=== PATIENT | female | born 1995 | race Caucasian/White ===

== ENCOUNTER 2019-03-25 15:30 | Emergency (ER) | payer OTHER ==
[2019-03-25 15:56] VITALS: BP 122/60; PULSE 78; TEMP 97.8; BMI 18.6
--- NOTE | 2019-03-25 15:56 | PDOC ---
Rapid Medical Evaluation Chief Complaint: Vaginal Sxs Time Seen by Provider: 03/25/19 15:53 Medical Evaluation: Allergies Allergy/AdvReac Type Severity Reaction Status Date / Time No Known Allergies Allergy Verified 03/25/19 15:53 03/25/19 15:54 Pt c/o: pelvic cramping with white clear odorous discharge, normal LMP Pt on brief exam: no abd tenderness, Pt ordered for: gc/chlyam/trich Pt to proceed to the ED Discharge Disposition - Diagnosis Vaginal discharge, Abdominal pain - Discharge Dispostion Disposition: HOME Condition at time of disposition: Good - Prescriptions Prescriptions: metroNIDAZOLE [Flagyl -] 500 mg PO DAILY #14 tablet - Referrals - Patient Instructions Printed Discharge Instructions: Bacterial Vaginosis Additional Instructions: Flagyl as instructed. It is important not to drink alcohol while you are on the medication and for up to 24 hours after the last dose to prevent adverse reaction Please call in 3 to 5 days for STD results at [phone]. If any test is positive we will call you immediately - Post Discharge Activity
--- NOTE | 2019-03-25 16:21 | PDOC ---
History of Present Illness - General Chief Complaint: Vaginal Sxs Stated Complaint: VAGINAL PAIN Time Seen by Provider: 03/25/19 15:53 History Source: Patient - History of Present Illness Timing/Duration: reports: other Past History - Past Medical History Allergies/Adverse Reactions: Allergies Allergy/AdvReac Type Severity Reaction Status Date / Time No Known Allergies Allergy Verified 03/25/19 15:53 Home Medications: Ambulatory Orders metroNIDAZOLE [Flagyl -] 500 mg PO DAILY #14 tablet 03/25/19 CVA: No COPD: No CHF: No DVT: No Dementia: No - Immunization History Immunization Up to Date: Yes - Psycho Social/Smoking Cessation Hx Smoking History: Never smoked Information on smoking cessation initiated: No Hx Alcohol Use: No Drug/Substance Use Hx: No Review of Systems - Review of Systems Constitutional: No: Chills, Fever ABD/GI: Yes: Abdominal cramping. No: Constipated, Diarrhea, Nausea, Vomiting : Yes: Discharge. No: Dysuria, Flank Pain, Hematuria *Physical Exam - Vital Signs Last Vital Signs Temp Pulse Resp BP Pulse Ox 97.8 F 78 16 122/60 100 03/25/19 15:53 03/25/19 15:53 03/25/19 15:53 03/25/19 15:53 03/25/19 15:53 - Physical Exam General Appearance: Yes: Appropriately Dressed. No: Apparent Distress HEENT: positive: Normal Voice Neck: positive: Supple Respiratory/Chest: negative: Respiratory Distress Female Pelvic Exam: positive: normal external exam, cervical os closed, normal adnexa. negative: CMT, discharge, lesions, Bartholin mass, adnexal tenderness, vaginal bleeding Gastrointestinal/Abdominal: positive: Soft. negative: Tender, Distended, Guarding, Rebound Musculoskeletal: negative: CVA Tenderness Integumentary: positive: Dry, Warm Neurologic: positive: Fully Oriented, Alert, Normal Mood/Affect Medical Decision Making - Medical Decision Making 03/25/19 16:13 24-year-old female, no significant history, sexually active with longtime male partner only per pt, here with mid suprapubic pain x3 days, w/ foul-smelling vaginal discharge. Denies nausea, vomiting, fever, chills or dysuria. No history of sexually transmitted diseases. Has never had a Papsmear see exam Possible BV No e/o PID on exam Upreg and ua neg -Dc w/ flagyl (warned against etoh use) -STD tests pending Discharge - Discharge Information Problems reviewed: Yes Clinical Impression/Diagnosis: Vaginal discharge Abdominal pain Qualifiers: Abdominal location: unspecified location Qualified Code(s): R10.9 - Unspecified abdominal pain Condition: Good Disposition: HOME - Additional Discharge Information Prescriptions: metroNIDAZOLE [Flagyl -] 500 mg PO DAILY #14 tablet - Follow up/Referral - Patient Discharge Instructions Patient Printed Discharge Instructions: Bacterial Vaginosis Additional Instructions: Flagyl as instructed. It is important not to drink alcohol while you are on the medication and for up to 24 hours after the last dose to prevent adverse reaction Please call in 3 to 5 days for STD results at [phone]. If any test is positive we will call you immediately - Post Discharge Activity
[2019-03-25 17:48] LABS: PH,URINE 7.5 (5.0-8.0); URINE APPEARANCE CLOUDY; URINE BILIRUBIN NEGATIVE (NEGATIVE); URINE COLOR DK YELLOW; URINE GLUCOSE (UA) NEGATIVE (NEGATIVE); URINE KETONE TRACE (NEGATIVE); URINE LEUK ESTERASE NEGATIVE (NEGATIVE); URINE NITRITE NEGATIVE (NEGATIVE); URINE PROTEIN TRACE (NEGATIVE)
== END 2019-03-25 17:19 | disposition home or self-care (01) ==
LOC: JERFT 15:30
DX: R10.2 Pelvic and perineal pain (principal); N89.8 Other specified noninflammatory disorders of vagina
CPT/HCPCS: 36415; 81003; 84703; 87070; 87077; 87205; 87491; 87591; 87661; 99282-25

== ENCOUNTER 2021-08-25 13:10 | Emergency (ER) | payer OTHER ==
[2021-08-25 13:26] VITALS: BP 117/62; PULSE 109; TEMP 99.9; BMI 19.0
[2021-08-25] MEDS ORDERED: DEXAMETHASONE SOD PHOSPHATE 10 MG/1 ML VIAL PO ONE (13:36)
[2021-08-25] MEDS ORDERED: ACETAMINOPHEN 500 MG TABLET (FP) PO ONE (13:52)
== END 2021-08-25 15:13 | disposition home or self-care (01) ==
LOC: JER 13:10
DX: J06.9 Acute upper respiratory infection, unspecified (principal)
CPT/HCPCS: 0241U-QW; 99283-25; J1100

== ENCOUNTER 2021-10-13 08:50 | Emergency (ER) | payer OTHER ==
[2021-10-13 09:05] VITALS: BP 117/77; PULSE 84; RESP 18; TEMP 98.6; BMI 19.2
[2021-10-13] MEDS ORDERED: diphenhydrAMINE HCL 25 MG CAPSULE (FP) PO ONE ×2 (09:38→09:47)
[2021-10-13 10:57] LABS: EPI CELLS 18 /uL (0-25.1); HYALINE CASTS 1 /uL (0-3.1); PH,URINE 6.5 (5.0-8.0); URINE APPEARANCE CLOUDY; URINE BACTERIA 743 /uL (0-1359); URINE BILIRUBIN NEGATIVE (NEGATIVE); URINE COLOR YELLOW; URINE GLUCOSE (UA) NEGATIVE (NEGATIVE); URINE KETONE NEGATIVE (NEGATIVE); URINE LEUK ESTERASE 2+ (NEGATIVE); URINE NITRITE NEGATIVE (NEGATIVE); URINE PROTEIN 2+ (NEGATIVE); URINE RBC 639 /uL (0-23.9); URINE UROBILINOGEN 0.2 mg/dL (0.2-1.0); URINE WBC 1438 /uL (0-25.8)
== END 2021-10-13 11:15 | disposition home or self-care (01) ==
LOC: JERFT 08:50
DX: N30.01 Acute cystitis with hematuria (principal); T63.441A Toxic effect of venom of bees, accidental (unintentional), initial encounter
CPT/HCPCS: 81003; 84703; 87086; 87186; 99283-25